=== PATIENT | female | born 1950 | race Caucasian/White ===

== ENCOUNTER 2022-09-22 11:32 | Observation (INO) | payer MEDICARE ==
[~2022-09-22] VITALS: Ht 157.5 cm; Wt 90.7 kg
[2022-09-22] MEDS ORDERED: CARVEDILOL3.125 MG PO (11:52)
[2022-09-22] MEDS ORDERED: GLIMEPIRIDE2 MG PO (11:52)
[2022-09-22] MEDS ORDERED: METFORMIN HCL1000 MG (11:52)
[2022-09-22] MEDS ORDERED: LISINOPRIL10 MG PO (11:52)
[2022-09-22] MEDS ORDERED: ASPIRIN 81 MG CHEW TAB PO ONE (12:00)
[2022-09-22] MEDS ORDERED: ACETAMINOPHEN 325 MG TAB PO ONE (12:00)
[2022-09-22] MEDS ORDERED: LABETALOL HCL 5 MG/ML 20ML VIAL IV STA (12:00)
[2022-09-22] MEDS ORDERED: NITROGLYCERIN 2% OINT 1 GM PKT TOP ONE (12:00)
[2022-09-22] MEDS ORDERED: NITROGLYCERIN 2% OINT 1 GM PKT ONE (12:09)
[2022-09-22] MEDS ORDERED: ACETAMINOPHEN 325 MG TAB ONE (12:09)
[2022-09-22] MEDS ORDERED: ASPIRIN 81 MG CHEW TAB ONE (12:09)
[2022-09-22] MEDS ORDERED: LABETALOL HCL 20 ML ONE (12:09)
[2022-09-22] MEDS ORDERED: ENALAPRILAT IV INJ 1.25 MG/ML VIAL IV PRN (13:00)
[2022-09-22] MEDS ORDERED: ONDANSETRON HCL INJ 2MG/ML 2ML 2 MG/ML VIAL IV PRN (13:00)
[2022-09-22] MEDS ORDERED: DIPHENHYDRAMINE HCL INJ 50 MG/ML VIAL IV PRN (13:00)
[2022-09-22] MEDS ORDERED: ZOLPIDEM TARTRATE 5 MG TAB PO PRN (13:00)
[2022-09-22] MEDS ORDERED: ACETAMINOPHEN 325 MG TAB PO PRN (13:00)
[2022-09-22] MEDS ORDERED: ENOXAPARIN SODIUM INJ 100 MG/ML SYR SC ONE (13:30)
[2022-09-22] MEDS ORDERED: METOPROLOL TARTRATE 25 MG TAB PO SCH (13:30)
[2022-09-22] MEDS ORDERED: METOPROLOL TARTRATE 50 MG TAB ONE (13:35)
[2022-09-22] MEDS: FAMOTIDINE 20 MG TAB PO SCH (14:00)
[2022-09-22 16:12] VITALS: BP 152/82; PULSE 75; RESP 18; TEMP 98.1; O2SAT 97
[2022-09-22] MEDS ORDERED: NITROGLYCERIN 2% OINT 1 GM PKT TOP SCH (18:00)
[2022-09-22 20:00] VITALS: BP 130/76; PULSE 70; RESP 20; TEMP 97.9; O2SAT 97
[2022-09-22] MEDS ORDERED: SIMVASTATIN 40 MG TAB PO SCH (21:00)
[2022-09-22 21:54] VITALS: BP 130/76; PULSE 70; RESP 20; TEMP 97.9; O2SAT 97
[2022-09-23] VITALS: BP 115/75; PULSE 89; RESP 20; TEMP 97.8
[2022-09-23 03:16] LABS: CHOL/HDL RATIO 6.3 (3.0-3.6); CHOLESTEROL 163 MD/DL (0-199); HDL CHOLESTEROL 26 MG/DL (40-60); TRIGLYCERIDES 435 MG/DL (0-149)
[2022-09-23 03:17] LABS: CREATINE KINASE 73 IU/L (29-168)
[2022-09-23 04:00] VITALS: BP 137/80; PULSE 68; RESP 20; TEMP 97.6; O2SAT 99
[2022-09-23] MEDS: FAMOTIDINE 20 MG TAB PO SCH (07:38)
[2022-09-23 08:44] VITALS: BP 132/69; PULSE 72; RESP 18; TEMP 97.5; O2SAT 100
[2022-09-23] MEDS ORDERED: ASPIRIN 325 MG TAB EC PO SCH (09:00)
[2022-09-23] MEDS ORDERED: CARVEDILOL 12.5 MG TAB PO SCH (09:00)
[2022-09-23] MEDS ORDERED: VALSARTAN 160 MG TAB PO SCH (09:00)
[2022-09-23 12:33] VITALS: BP 145/73; PULSE 79; RESP 16; TEMP 97.9; O2SAT 98
[2022-09-23] MEDS ORDERED: MELATONIN 3 MG TAB PO PRN (16:45)
[2022-09-23] MEDS ORDERED: DOCUSATE SODIUM 100 MG CAP PO PRN (16:45)
[2022-09-23] MEDS ORDERED: SODIUM CHLORIDE 0.45% 1,000 ML IV SCH (16:45)
[2022-09-23] MEDS ORDERED: FENOFIBRATE 145 MG TAB PO SCH (16:45)
[2022-09-23 16:53] VITALS: BP 130/73; PULSE 79; RESP 18; TEMP 97.9; O2SAT 98
[2022-09-23] MEDS ORDERED: CARVEDILOL 3.125 MG TAB PO SCH (21:00)
== END 2022-09-23 17:04 | disposition left against medical advice (07) ==
LOC: FSED 11:39 → ERHOLD 12:49 → MED/SURG 16:01
PROVIDERS: ADMIT Internal Medicine; ATTEND Internal Medicine
DX: R42 Dizziness and giddiness (principal); I16.1 Hypertensive emergency; E78.5 Hyperlipidemia, unspecified; E66.9 Obesity, unspecified; Z68.36 Body mass index [BMI] 36.0-36.9, adult; E11.9 Type 2 diabetes mellitus without complications
CPT/HCPCS: 36415 ×2; 70450; 71046; 80053; 80061; 81003; 82550 ×2; 82553; 82948; 83880; 84484 ×2; 85025; 93005; 93880; 96374; 99284; G0378 ×2; J3490; U0002

== ENCOUNTER → 2023-10-02 | Outpatient (REF) | payer MEDICARE ==
[~2023-10-02] MED LIST: CARVEDILOL3.125 MG PO; GLIMEPIRIDE2 MG PO; LISINOPRIL10 MG PO; METFORMIN HCL1000 MG
== END ==
LOC: RAD 08:20
PROVIDERS: ATTEND Internal Medicine
DX: M79.89 Other specified soft tissue disorders (principal); R60.0 Localized edema
CPT/HCPCS: 93971